=== PATIENT | male | born 1975 | race Caucasian/White ===

== ENCOUNTER 2018-03-06 15:59 | Emergency (ER) | payer MEDICAID, OTHER ==
[~2018-03-06] VITALS: Ht 180.3 cm; Wt 71.5 kg
[2018-03-06] MEDS ORDERED: METOCLOPRAMIDE 5 MG/ML, 2ML IVPush ONE (16:30)
[2018-03-06] MEDS ORDERED: DIPHENHYDRAMINE 50 MG/ML, 1ML IVPush ONE (16:30)
[2018-03-06] MEDS ORDERED: SODIUM CHLORIDE 0.9% 1,000ML IVBOLUS ONE (16:30)
[2018-03-06] MEDS ORDERED: DIPHENHYDRAMINE 50 MG/ML, 1ML ONE (16:47)
[2018-03-06] MEDS ORDERED: METOCLOPRAMIDE 5 MG/ML, 2ML ONE (16:47)
[2018-03-06] MEDS ORDERED: ALBU8.5H8 INH (17:00)
[2018-03-06] MEDS ORDERED: FLUT12AE INH (17:00)
[2018-03-06] MEDS ORDERED: ATOR80TA PO (17:00)
[2018-03-06] MEDS ORDERED: OMEP-110 PO (17:00)
[2018-03-06] MEDS ORDERED: ASPI-515 PO (17:00)
[2018-03-06 17:45] VITALS: BP 110/70
== END 2018-03-06 17:48 | disposition home or self-care (01) ==
LOC: ED 16:22
DX: R51 Headache (principal); R11.10 Vomiting, unspecified; F17.200 Nicotine dependence, unspecified, uncomplicated
CPT/HCPCS: 70450; 96361; 96374; 96375; 99284; J1200; J2765; J7030